=== PATIENT | female | born 1940 | race Caucasian/White ===

== ENCOUNTER → 2023-04-30 | Day surgery (SDC) | payer MEDICARE ==
[~2023-04-30] VITALS: Ht 160 cm; Wt 75.9 kg
[~2023-04-30] MED LIST: ALBU8.5H INH; BAYE81TA7 PO; CALC-175 PO; CVS1CAP2 PO; D200CAP2 PO; FURO20TA2 PO; LIDOCAINE 2% 100MG/5ML SDV (FOR ANES.) As Ordered ONE; LOSA100T46 PO; METO1TAB33 PO; NS 1,000 ML IV ONE; OCUVTAB4 PO; OMEG10002 PO; RALO1TAB PO; SIMV20TA22 PO; propofoL 200 MG/20 ML VIAL As Ordered ONE
[2023-04-30 12:58] VITALS: TEMP 98.5
[2023-04-30 13:15] VITALS: BP 165/79; O2SAT 95
== END | disposition home or self-care (01) ==
LOC: M OPP 10:22
PROVIDERS: ATTEND Internal Medicine Gastroenterology
DX: D12.2 Benign neoplasm of ascending colon (principal); K64.0 First degree hemorrhoids; K57.30 Diverticulosis of large intestine without perforation or abscess without bleeding; I10 Essential (primary) hypertension; E78.5 Hyperlipidemia, unspecified; M17.0 Bilateral primary osteoarthritis of knee; Z79.82 Long term (current) use of aspirin; Z79.899 Other long term (current) drug therapy